=== PATIENT | male | born 1970 | race Caucasian/White ===

== ENCOUNTER 2018-08-22 09:21 | Outpatient (CLI) | payer BC ==
--- NOTE | 2018-08-22 13:54 | Diagnostic Imaging Report ---
TY NORRIS [facility] [id number] [facility].[address] [id number] Report Submission Date: Aug 22, 2018 9:49:37 AM CDT Patient Study Name: TINO MALONE Date: Aug 22, 2018 9:22:50 AM CDT Modality Type: DX Gender: M Description: UPPER EXTREMITY : 68 Institution: [facility] Physician: TY NORRIS Examination: Plain film left hand History: PT STATES HAND PAIN AND STIFFNESS IN THE 3RD DIGIT OF THE LEFT HAND. (Hx) Comparison exams: None available Findings: 3 views of the left hand demonstrate normal cortical margins. No fracture. No dislocation. No soft tissue abnormality. Impression: No acute osseous abnormality Electronically signed on Aug 22, 2018 9:49:37 AM CDT by: Dimitry FISHER
== END 2018-08-22 09:31 ==
LOC: RAD 09:21
PROVIDERS: ATTEND Family Medicine
DX: M79.642 Pain in left hand (principal)
CPT/HCPCS: 73130

== ENCOUNTER 2019-03-08 08:59 | Outpatient (CLI) | payer BC, OTHER | END 2019-03-08 09:00 | LOC: LAB 08:59 | PROVIDERS: ATTEND Family Medicine | DX: E78.5 Hyperlipidemia, unspecified (principal); R73.09 Other abnormal glucose; Z13.89 Encounter for screening for other disorder | CPT/HCPCS: 36415; 80053; 80061; 83036 ==

== ENCOUNTER 2019-06-29 08:20 | Emergency (ER) | payer BC ==
--- NOTE | 2019-06-29 08:26 | ED Physician Documentation ---
General Adult - HISTORIAN Historian: patient - HPI Stated Complaint: cat bite from their cat Chief Complaint: Animal Bite Onset: days ago (1) Timing: still present Severity: mild Further Comments: yes (He was trying to catch their cat and the cat did bite at him and he has had some swelling and a blister area on the left thumb. He has taken OTC meds with mild relief) Last known Well Code/Unknown Code: Unknown - ROS CONST: no problems. denies: fever EYES/ENT: none GI/: none MS/SKIN/LYMPH: none NEURO/PSYCH: denies: headache - PAST HX Past History: none Immunizations: UTD Allergies/Adverse Reactions: Allergies Allergy/AdvReac Type Severity Reaction Status Date / Time No Known Allergies Allergy Verified 06/29/19 08:29 Home Medications: Ambulatory Orders Medication Instructions Recorded Duloxetine HCl [Cymbalta] 1 tab PO DAILY 06/29/19 Ezetimibe [Zetia] 1 tab PO DAILY 06/29/19 Omeprazole 1 tab PO DAILY 06/29/19 - SOCIAL HX Smoking History: non-smoker Alcohol Use: none Drug Use: none - FAMILY HX Family History: No - REVIEWED ASSESSMENTS Nursing Assessment Reviewed: Yes Vitals Reviewed: Yes General Adult Physical Exam - PHYSICAL EXAM GENERAL APPEARANCE: no distress EENT: eye inspection normal, no signs of dehydration NECK: normal inspection RESPIRATORY: no resp distress, chest non-tender, breath sounds normal CVS: reg rate & rhythm, heart sounds normal BACK: normal inspection SKIN: warm/dry, other (left thumb with small blister area and mild swelling to hand . No redness. NO warmth. ) EXTREMITIES: non-tender NEURO: oriented X3 Discharge Clincal Impression: Cat bite Qualifiers: Encounter type: initial encounter Qualified Code(s): W55.01XA - Bitten by cat, initial encounter Referrals: Alis Jackman MD [Primary Care Provider] - 2 Days Comments: 1. Augmentin 875/125 mg take 1 by mouth twice daily 2. Epsom soaks 3. OTC meds that for symptom relief as directed 4. Ice for comfort 5. See PCP in 2-4 days 6. Return to ER for any increasing concerns Condition: Stable Disposition: 01 HOME, SELF-CARE Decision to Admit: NO Date of Decison to Admit: 06/29/19 Decision Time: 09:00
[2019-06-29 08:29] VITALS: BP 117/72
== END 2019-06-29 09:05 | disposition home or self-care (01) ==
LOC: ED 08:20
DX: S61.052A Open bite of left thumb without damage to nail, initial encounter (principal); W55.01XA Bitten by cat, initial encounter
CPT/HCPCS: 99283; 99284